=== PATIENT | male | born 1985 | race Caucasian/White ===

== ENCOUNTER 2025-01-17 01:56 | Emergency (ER) | payer OTHER, SELFPAY ==
[2025-01-17 01:56] VITALS: BMI 38.5
[2025-01-17 02:15] VITALS: BP 156/99; PULSE 103; RESP 18; TEMP 36.8; O2SAT 98
--- NOTE | 2025-01-17 02:31 | XR_ITS ---
Examination: Wrist, left 3 views Technique: Wrist AP, oblique, lateral 3 views Date and time of exam: January 17, 2025, 0228 hours INDICATIONS: Patient tripped and fell today with injury to the wrist, wrist pain. FINDINGS: Acute comminuted impacted intra-articular fracture distal radial metaphysis, slight offset at the radial articulating surface Ulnar styloid tip fracture Carpal bones intact IMPRESSION: Acute comminuted impacted intra-articular fracture distal radial metaphysis
--- NOTE | 2025-01-17 02:39 | XR_ITS ---
Examination: Left elbow 3 views Technique: Elbow AP, oblique, lateral 3 views Exam date and time: January 17, 2025, 0236 hours INDICATION: Patient slipped and fell today with injury to the elbow, elbow pain. FINDINGS: No fracture or dislocation. No foreign body IMPRESSION: No fracture or dislocation.
--- NOTE | 2025-01-17 02:49 | EDNOTE_ITS ---
Upper Extremity Injury RME/HPI General Chief Complaint: Hand/Wrist Problems Stated Complaint: LEFT WRIST INJURY Time Seen by Provider: 01/17/25 02:38 Arrival date/time: 01/17/25 01:56 RME / HPI RME / HPI narrative: DR. ELKINS MAIN ED EVALUATION: This is doctor's first report. Patient sustained FOOSH injury with no head strike or LOC. No distal paresthesias or weakness of affected extremity. No other sustained injury. PMH: Depression PSH: Non-contributory Allergies: NKDA Social: No alcoholism or illicit drug abuse Related Data Previous Rx's ?Medication ?Instructions ?Recorded cyclobenzaprine 10 mg tablet 10 mg PO TID #14 tabs 02/14 ibuprofen 800 mg tablet 800 mg PO TID #20 tabs 11/09 Allergies Allergy/AdvReac Type Severity Reaction Status Date / Time No Known Allergies Allergy Verified 11/09/17 21:27 Review of Systems Review of Systems Systems Reviewed: All systems reviewed, normal except as documented Past Medical History Past Medical History PSYCHO/SOCIAL: Positive Depression Social History SMOKING STATUS: Light (< 1 pack/day) ED Exam Narrative Physical exam: GEN. APPEARANCE: The patient is alert awake oriented X-3 under no distress, lying down comfortably, does not look ill/toxic. Patient has good eye contact. Patient is cooperative. C/o left wrist pain. VITALS: All vitals were reviewed and the pulse ox is 98%, which is normal according to my interpretation HEENT: Normocephalic, atraumatic and nontender. Pupils are equal and reactive. Oral mucosa is moist. NECK: Supple, nontender, no meningismus, no JVD. There is no thyromegaly and no lymphadenopathy. CHEST: Nontender on palpation no deformity and no crepitus. CARDIOVASCULAR: Heart regular rhythm, no murmur or gallop rub or extra beats. LUNGS: Clear to auscultation bilaterally with symmetrical chest rise. No laboring tachypnea or wheezing. No intercostal subcostal retraction. No rales and no rhonchi. ABDOMEN: Soft, flat, nontender to palpation, no guarding or rebound tenderness. There are no abnormal masses palpated. No pulsatile masses or bruits. Active and normal bowel sounds. EXTREMITIES: LUE: wrist: marked TTP of distal radius, diffuse radial carpal tenderness, Limited ROM of the wrist, and distal function intact. SKIN: Warm and dry, no rashes noted. MUSCULOSKELETAL: No lumbar or midline bony tenderness. There is no CVA tenderness. No paraspinal muscle spasm or tenderness. NEURO: Cranial nerves II through XII grossly intact. There are no focal neurologic deficits noted. GCS is 15 PSYCHIATRIC: Patient is in normal mood and affect, cooperative. LYMPHATICS: No major lymphadenopathy noted. Course Quality Measures none Orders Category Date Time Status XR elbow comp LT min 3V Stat Exams 01/17/25 02:39 Taken XR wrist comp LT min 3V Stat Exams 01/17/25 02:31 Taken Morphine* Inj Med 01/17/25 02:54 Discontinued 4 mg IM X1 ONE Morphine* Inj Med 01/17/25 03:05 Discontinued 4 mg IVP Q1H ONE Morphine* Inj Med 01/17/25 03:07 Discontinued 4 mg IVP X1 ONE Prochlorperazine Inj [Compazine Inj] Med 01/17/25 02:54 Discontinued 2.5 mg IM X1 ONE Prochlorperazine Inj [Compazine Inj] Med 01/17/25 03:05 Discontinued 2.5 mg IV X1 ONE Vital Signs Vital signs: Vital Signs Temperature 98.2 F 01/17/25 02:15 Pulse Rate 103 H 01/17/25 02:15 Respiratory Rate 18 01/17/25 02:15 Blood Pressure 156/99 H 01/17/25 02:15 Pulse Oximetry (%) 98 01/17/25 02:15 Oxygen Delivery Method Room Air 01/17/25 02:15 Extremity Injury MDM Narrative MDM Narrative:: Scribe Attestation: Gabriela Day am scribing for and in the presence of Dr. Govea. Provider Notation: Although this document has been carefully reviewed, there may still be some phonetic and other typographical errors. These errors are purely grammatical due to imperfections in the software program and should not be construed in any way to compromise the substance of the patient's medical care during this visit. This is doctor's first report. Patient sustained FOOSH injury with no head strike or LOC. No distal paresthesias or weakness of affected extremity. Please see PE findings. Radiographs demonstrate and impacted distal radial fracture with minimal dorsal angulation of the distal fragments. Patient placed in thumb spicca splint and sling applied. Patient administered low-dose narcotic analgesics/anti-emetics with mild to moderate relief. Close orthopedic F/U advised through occupational medicine physician, which patient will be given a referral for in 2-3 days. Patient data External records reviewed:: [facility] previous records (No recent ED records available for review) Clinical information provided by:: patient Social determinants that could affect healthcare access:: none Patient has the following chronic illnesses:: Depression How is presenting disease/condition affected by chronic disease/condition?: uneffected by Evaluation data The following diagnostics were reviewed and interpreted by me:: radiology exam(s) Lab and/or radiology exams considered but not ordered:: None Interpretation Summary: RADIOLOGY Wrist X-Ray: Pending official radiology report. Elbow X-Ray: Pending official radiology report. Medications / Prescriptions Medications or Prescriptions considered but not ordered:: None Medication administrations:: Medication Administration History Discontinued Medications Morphine Sulfate (Morphine Sulf Inj 4 Mg/Ml Vial) 4 mg IM X1 ONE Stop: 01/17/25 02:55 Last Admin: 01/17/25 03:06 Dose: Not Given Documented By: NATHALY Non-Admin Reason: Cancelled by Provider Morphine Sulfate (Morphine Sulf Inj 4 Mg/Ml Vial) 4 mg IVP Q1H ONE Stop: 01/17/25 03:06 Last Admin: 01/17/25 03:07 Dose: Not Given Documented By: NATHALY Non-Admin Reason: Cancelled by Provider Morphine Sulfate (Morphine Sulf Inj 4 Mg/Ml Vial) 4 mg IVP X1 ONE Stop: 01/17/25 03:08 Last Admin: 01/17/25 03:10 Dose: 4 mg Documented By: NATHALY Prochlorperazine Edisylate (Prochlorperazine Inj 5 Mg/Ml Vial 2 Ml) 2.5 mg IM X1 ONE; Protocol Stop: 01/17/25 02:55 Last Admin: 01/17/25 03:06 Dose: Not Given Documented By: NATHALY Non-Admin Reason: Cancelled by Provider Prochlorperazine Edisylate (Prochlorperazine Inj 5 Mg/Ml Vial 2 Ml) 2.5 mg IV X1 ONE; Protocol Stop: 01/17/25 03:06 Last Admin: 01/17/25 03:10 Dose: 2.5 mg Documented By: NATHALY See above if any Consultations Consultation(s) initiated? (list below): No Diagnosis Upper Extremity Injury Differential Diagnosis: sprain and strain of wrist, fracture of wrist, finger sprain, dislocation of finger, fracture of hand and dislocation of shoulder Most likely diagnosis given after review of the tests above:: Comminuted closed distal radial fracture Admission Indicated Admission indicated?: not indicated Explain why admission is indicated or not indicated:: Patient does not meet admission criteria Admission Request Was there a request for admission?: No Disposition Plan Disposition Plan: Discharge Discharge Attestation Discharge Attestation: The patient and all family members were given an opportunity to ask questions and understood the discharge instructions. Discharge instructions specifically effects, indications for sooner follow up or return to the emergency department, and the expected course of current diagnosis. Patient condition: Stable Discharge Plan Plan Patient Disposition: HOME (Self Care) Prescriptions/Referrals Prescriptions/Med Rec: No Action cyclobenzaprine 10 mg tablet 10 mg PO TID Qty: 14 0RF ibuprofen 800 mg tablet 800 mg PO TID Qty: 20 0RF Referrals: Andrew Luther PA-C [Primary Care Provider] - In 1 week Problem List Clinical Impression: Closed fracture of distal end of left radius Patient/Caregiver Discharge Instructions Print Language: Citizen Of [place] Stand Alone Forms: Antonette Award Info., Patient Portal Info Letter
[2025-01-17] MEDS: MORPHINE SULF INJ 4 MG/ML VIAL IVP (03:10)
[2025-01-17] MEDS: PROCHLORPERAZINE INJ 5 MG/ML VIAL 2 ML 2.5 MG IV (03:10)
[2025-01-17 03:40] VITALS: BP 142/90; PULSE 98; RESP 12; O2SAT 98
== END 2025-01-17 03:41 | disposition home or self-care (01) ==
PROVIDERS: Emergency Provider Emergency Medicine; PCP Physician Assistant
DX: S52.592A Other fractures of lower end of left radius, initial encounter for closed fracture (principal); W19.XXXA Unspecified fall, initial encounter
CPT/HCPCS: 73080; 73110; 96374; 99283; J0780; J2270